=== PATIENT | male | born 1950 | race Caucasian/White ===

== ENCOUNTER 2024-04-04 07:26 | Outpatient (OUT) | payer MEDICARE, SELFPAY ==
--- NOTE | 2024-04-04 07:50 | NM_ITS ---
[address] [address] Patient Name: PINA APONTE MRN: [id number] date: 1950 Sex: M Assigned Patient Location: LAB Current Patient Location: Accession/Order Number: [id number] Exam Date: 04/04/2024 07:50 Report Date: 04/05/2024 09:41 At the request of: CHRISTINE ARCHER Procedure: NM parathyroid EXAMINATION: NM parathyroid HISTORY: HYPERPARATHRYOIDISM, HYPERCALCEMIA COMPARISON: No relevant comparison available. FINDINGS: 26.0 mCi technetium 99 sestamibi. 15 minute three-hour 24 hour images PARATHYROID UPTAKE: None. OTHER: Negative. NM/NM parathyroid IMPRESSION: Normal radionuclide activity and washout with no abnormal parathyroid uptake Electronically authenticated by: JANNY OBANDO Date: 04/05/2024 09:41
[2024-04-04 08:58] LABS: Calcium 11.8 mg/dL (8.5-10.1); Thyroid Stimulating Hormone 6.085 uIU/mL (0.358-3.740)
[2024-04-05 13:11] LABS: PTH, Intact 136 pg/mL (15-65)
== END 2024-04-04 07:27 | disposition home or self-care (01) ==
LOC: LAB 07:30
PROVIDERS: PCP Family Medicine; Visit Provider Otolaryngology
DX: R94.02 Abnormal brain scan (principal); E21.3 Hyperparathyroidism, unspecified; E83.52 Hypercalcemia
CPT/HCPCS: 36415; 78070; 82310; 83970; 84443; A9500